=== PATIENT | female | born 1965 | race Caucasian/White ===

== ENCOUNTER 2017-02-23 10:00 | Inpatient (IN) | payer BC ==
[~2017-02-23] VITALS: Ht 170.2 cm; Wt 84.4 kg
[2017-02-23] MEDS ORDERED: NAPR500T3 PO (10:39)
[2017-02-23] MEDS ORDERED: FISH400C3 PO (10:39)
[2017-02-23] MEDS ORDERED: MIRT30TA4 PO (10:39)
[2017-02-23] MEDS ORDERED: HYDR25TA6 PO (10:39)
[2017-02-23] MEDS ORDERED: MULT-658 PO (10:39)
[2017-02-23] MEDS ORDERED: ATEN25TA PO (10:39)
[2017-02-23] MEDS ORDERED: TRAM50TA2 PO (10:39)
[2017-02-26] MEDS ORDERED: THROMBIN 5,000 UNIT VIAL TP ONE (06:04)
[2017-02-26] MEDS ORDERED: BUPIVACAINE/PF-EPI 0.25% 1:200K ONE (06:04)
[2017-02-26] MEDS ORDERED: BACITRACIN 50,000 UNIT ONE (06:05)
[2017-02-26 06:16] VITALS: BP 143/95
[2017-02-26] MEDS ORDERED: LIDOCAINE 1%, 2ML ONE (06:29)
[2017-02-26] MEDS ORDERED: LACTATED RINGERS 1,000 ML IV SCH (06:53)
[2017-02-26] MEDS ORDERED: CLINDAMYCIN 150 MG/ML, 6ML ONE (06:57)
[2017-02-26] MEDS ORDERED: LIDOCAINE 1%, 2ML SQ PRN (07:00)
[2017-02-26] MEDS ORDERED: KETAMINE 10 MG/ML, 20ML ONE (07:02)
[2017-02-26] MEDS ORDERED: FENTANYL PF 250 MCG/5ML ONE (07:02)
[2017-02-26] MEDS ORDERED: ONDANSETRON 2MG/ML, 2ML ONE (07:09)
[2017-02-26] MEDS ORDERED: LABETALOL 20 MG/4 ML ONE (07:09)
[2017-02-26] MEDS ORDERED: PROPOFOL 10 MG/ML, 20ML ONE (07:09)
[2017-02-26] MEDS ORDERED: METOCLOPRAMIDE 5 MG/ML, 2ML ONE (07:09)
[2017-02-26] MEDS ORDERED: PHENYLEPHRINE 10 MG/ML ONE (07:09)
[2017-02-26] MEDS ORDERED: SUCCINYLCHOLINE 20 MG/ML, 10ML ONE (07:09)
[2017-02-26] MEDS ORDERED: PROPOFOL 10 MG/ML, 50ML ONE (07:09)
[2017-02-26] MEDS ORDERED: DEXAMETHASONE 4 MG/ML, 1ML ONE (07:09)
[2017-02-26] MEDS ORDERED: OXYcodone 5 MG/5 ML ORAL.SOL UDC PO PRN (08:30)
[2017-02-26] MEDS ORDERED: MEPERIDINE/PF 25MG/0.5ML IVPush PRN (08:30)
[2017-02-26] MEDS ORDERED: PROMETHAZINE 25 MG/ML, 1ML IV PRN (08:30)
[2017-02-26] MEDS ORDERED: ONDANSETRON 2MG/ML, 2ML IVPush PRN ×2 (08:30→09:00)
[2017-02-26] MEDS ORDERED: FENTANYL PF 100 MCG/2ML IV PRN (08:30)
[2017-02-26] MEDS ORDERED: LABETALOL 5MG/ML, 20ML IV PRN (08:30)
[2017-02-26] MEDS ORDERED: HYDROmorphone 1 MG/ML, 1ML IV PRN (08:30)
[2017-02-26] MEDS ORDERED: hydrALAzine 20 MG/ML, 1ML IV PRN (08:30)
[2017-02-26] MEDS ORDERED: MIDAZOLAM 1 MG/ML, 2ML IV PRN (08:30)
[2017-02-26] MEDS ORDERED: CYCLOBENZAPRINE 10 MG TABLET PO PRN (09:00)
[2017-02-26] MEDS ORDERED: DIPHENHYDRAMINE 50 MG/ML, 1ML IVPush PRN (09:00)
[2017-02-26] MEDS ORDERED: HYDROcodone/APAP 5/325 TABLET PO PRN (09:00)
[2017-02-26] MEDS ORDERED: BISACODYL 10 MG SUPP PR PRN (09:00)
[2017-02-26] MEDS ORDERED: PROMETHAZINE 25 MG/ML, 1ML IM PRN (09:00)
[2017-02-26] MEDS: ATENOLOL 25 MG TABLET PO SCH (09:00)
[2017-02-26] MEDS: SODIUM CHLORIDE FLUSH 10ML SYR IVF SCH ×2 (09:00→20:30)
[2017-02-26] MEDS: HYDROCHLOROTHIAZIDE 25 MG TABLET PO SCH (09:00)
[2017-02-26] MEDS ORDERED: PHARMACY MAY ADJ FOR RENAL FX MC PRN (09:00)
[2017-02-26] MEDS ORDERED: LABETALOL 5MG/ML, 20ML IVPush PRN (09:00)
[2017-02-26] MEDS ORDERED: OXYcodone/APAP 5/325MG TABLET PO PRN (09:00)
[2017-02-26] MEDS ORDERED: MIRTAZAPINE 30 MG PO SCH (09:00)
[2017-02-26] MEDS ORDERED: SENNA/DOCUSATE TABLET PO PRN (09:00)
[2017-02-26] MEDS ORDERED: FENTANYL PF 100 MCG/2ML ONE (09:13)
[2017-02-26] MEDS ORDERED: OXYcodone 5 MG/5 ML ORAL.SOL UDC ONE (09:13)
[2017-02-26] MEDS ORDERED: HYDROmorphone 2 MG/ML, 1ML ONE (09:13)
[2017-02-26] MEDS: MORPHINE SULFATE 4 MG/ML, 1ML IVPush PRN ×3 (10:55→15:23)
[2017-02-26] MEDS: CEFAZOLIN PMX 1GM/50ML 50 ML IVPB SCH ×2 (11:09→18:25)
[2017-02-26] MEDS: D5%-0.9% NACL+KCL 20MEQ 1,000 ML IV SCH ×2 (11:13→22:20)
[2017-02-26] MEDS ORDERED: METHOCARBAMOL 750 MG TABLET ONE (11:41)
[2017-02-26] MEDS: METHOCARBAMOL 750 MG TABLET PO PRN ×2 (11:48→20:29)
[2017-02-26 14:10] VITALS: BP 124/73
[2017-02-26] MEDS ORDERED: [UNRECOGNIZED DRUG - REMARK] MC SCH ×2 (14:30→16:30)
[2017-02-26] MEDS: HYDROcodone/APAP 10/325 MG TABLET PO PRN ×2 (16:54→21:40)
[2017-02-26 20:00] VITALS: BP 107/71
[2017-02-27 01:08] VITALS: BP 114/73
[2017-02-27] MEDS: HYDROcodone/APAP 10/325 MG TABLET PO PRN ×2 (01:47→06:09)
[2017-02-27 04:25] VITALS: BP 118/80
[2017-02-27] MEDS: METHOCARBAMOL 750 MG TABLET PO PRN (04:35)
[2017-02-27 06:40] VITALS: BP 117/74
[2017-02-27] MEDS: HYDROCHLOROTHIAZIDE 25 MG TABLET PO SCH (07:45)
[2017-02-27] MEDS: ATENOLOL 25 MG TABLET PO SCH (07:45)
[2017-02-27] MEDS ORDERED: METH750T87 PO (10:00)
[2017-02-27] MEDS ORDERED: HYDR-3307 PO (10:00)
[2017-02-27] MEDS ORDERED: DOXY50CA42 PO (10:01)
== END 2017-02-27 10:11 | disposition home or self-care (01) | DRG 473 ==
LOC: EDSTATUS 10:00 → ORIP 02-26 05:26 → 4NOR 02-26 13:30 → EDSTATUS 02-26 14:30 → DCLOUNGE 02-27 09:45
PROVIDERS: ADMIT Neurological Surgery; ATTEND Neurological Surgery
PROC: 0RB30ZZ Excision of Cervical Vertebral Disc, Open Approach (ICD-10-PCS; 2017-02-26)
PROC: 01N10ZZ Release Cervical Nerve, Open Approach (ICD-10-PCS; 2017-02-26)
PROC: 4A11X4G Monitoring of Peripheral Nervous Electrical Activity, Intraoperative, External Approach (ICD-10-PCS; 2017-02-26)
PROC: XRG New Technology, Joints, Fusion (ICD-10-PCS; principal; 2017-02-26 07:00)
DX: M48.02 Spinal stenosis, cervical region (principal); M47.22 Other spondylosis with radiculopathy, cervical region; G89.29 Other chronic pain; I10 Essential (primary) hypertension; Z82.49 Family history of ischemic heart disease and other diseases of the circulatory system; Z88.0 Allergy status to penicillin
CPT/HCPCS: 72040; C1713; J0690; J1100; J1170; J2405; J2704; J3010; C1762; C1778; J0330; J2370; J2765; J3480; J3490